=== PATIENT | male | born 1975 | race Caucasian/White ===

== ENCOUNTER 2018-10-30 13:47 | Inpatient (IN) | payer OTHER ==
[~2018-10-30] VITALS: Ht 167.6 cm; Wt 106.1 kg
[2018-10-30] MEDS ORDERED: IOVERSOL 350 MG/ML 100 ML VIAL ONE (14:25)
[2018-10-30] MEDS ORDERED: SODIUM CHLORIDE 0.9% 100 ML ONE (14:25)
[2018-10-30 14:32] LABS: BASOPHILS % (AUTO) 1.4 % (0.0-2.0); EOSINOPHILS % (AUTO) 4.8 % (1.0-6.0); HEMATOCRIT 43.6 % (41-53); HEMOGLOBIN 14.8 g/dL (13.5-17.5); LYMPHOCYTES # (AUTO) 2.2 K/uL (1.0-4.8); LYMPHOCYTES % (AUTO) 30.2 % (22.0-44.0); MEAN CORPUSCULAR HEMOGLOBIN 28.6 pg (26.0-34.0); MEAN CORPUSCULAR HGB CONC 33.8 G/dL (31.0-37.0); MEAN CORPUSCULAR VOLUME 84 fL (80-100); MONOCYTES # (AUTO) 0.6 K/uL (0.1-1.0); MONOCYTES % (AUTO) 7.5 % (2.0-9.0); NEUTROPHILS # (AUTO) 4.1 K/uL (1.8-7.7); NEUTROPHILS % (AUTO) 56.1 % (40.0-70.0); PLATELET COUNT (AUTO) 277 K/uL (150-450); RED BLOOD CELL COUNT(AUTO) 5.17 MIL/uL (4.50-5.90); RED CELL DISTRIBUTION WIDTH 13.4 % (11.5-14.5)
[2018-10-30 14:42] LABS: ANION GAP 9 mmol/L (8-16); CALCIUM, TOTAL 9.5 mg/dL (8.8-10.5); CARBON DIOXIDE 26 mmol/L (22-29); CHLORIDE 105 mmol/L (98-107); CREATININE 0.74 mg/dL (0.60-1.30); GLOMERULAR FILTR. RATE CALC > 60 mL/min (>60); GLUCOSE,RANDOM 268 mg/dL (70-110); POTASSIUM 3.8 mmol/L (3.5-5.1); SODIUM SERUM 140 mmol/L (136-145); UREA NITROGEN, BLOOD 8 mg/dL (7-18)
[2018-10-30] MEDS ORDERED: ONDANSETRON HCL 4 MG/2 ML VIAL IVP PRN (17:15)
[2018-10-30] MEDS ORDERED: ASPIRIN 81 MG CHEWABLE TABLET PO ONE (17:15)
[2018-10-30] MEDS ORDERED: ACETAMINOPHEN 325 MG TABLET PO PRN ×2 (17:15→17:45)
[2018-10-30 17:42] LABS: GLUCOSE,POINT OF CARE 291 MG/DL (70-110)
[2018-10-30] MEDS ORDERED: MAGNESIUM HYDROXIDE SUSPENSION 30 ML UDCUP PO PRN (17:45)
[2018-10-30] MEDS ORDERED: PNEUMOCOCCAL VACCINE POLYVALENT 0.5 ML VIAL [PPSV23] IM ONE (18:15)
[2018-10-30] MEDS: ATORVASTATIN CALCIUM 20 MG TABLET PO SCH (18:22)
[2018-10-30 18:40] VITALS: BP 144/95
[2018-10-30 20:30] VITALS: BP 155/79
[2018-10-30] MEDS: DOCUSATE SODIUM 100 MG CAPSULE PO SCH (20:41)
[2018-10-30] MEDS: HEPARIN SODIUM,PORCINE 5,000 UNITS/ML VIAL SQ SCH (23:47)
[2018-10-31] VITALS (7 sets, daily range): BP systolic 144–153; BP diastolic 77–97
[2018-10-31 01:44] LABS: AMPHET/METH SCREEN,URINE NEGATIVE (NEGATIVE); BARBITURATE SCREEN, URINE NEGATIVE (NEGATIVE); BENZODIAZEPINES SCREEN,URINE NEGATIVE (NEGATIVE); CANNABINOID SCREEN,URINE NEGATIVE (NEGATIVE); COCAINE SCREEN,URINE NEGATIVE (NEGATIVE); METHADONE SCREEN, URINE NEGATIVE (NEGATIVE); OPIATE SCREEN,URINE NEGATIVE (NEGATIVE)
[2018-10-31 01:45] LABS: PHENCYCLIDINE SCREEN,URINE NEGATIVE (NEGATIVE)
[2018-10-31] MEDS: DOCUSATE SODIUM 100 MG CAPSULE PO SCH ×2 (08:46→20:32)
[2018-10-31] MEDS: ATORVASTATIN CALCIUM 20 MG TABLET PO SCH (08:46)
[2018-10-31] MEDS: ASPIRIN 81 MG CHEWABLE TABLET PO SCH (08:46)
[2018-10-31] MEDS: HEPARIN SODIUM,PORCINE 5,000 UNITS/ML VIAL SQ SCH ×2 (08:47→16:47)
[2018-10-31] MEDS ORDERED: DEXTROSE 50%-WATER 25 GM/50 ML SYRINGE IVP PRN (10:00)
[2018-10-31] MEDS: INSULIN LISPRO 100 UNITS/ML SQ PRN ×3 (11:47→20:38)
[2018-10-31 11:50] LABS: GLUCOMETER DEV NAME(LOC) 5N.1; GLUCOSE,POINT OF CARE 258 MG/DL (70-110)
[2018-10-31 19:20] LABS: GLUCOMETER DEV NAME(LOC) 5N.1; GLUCOSE,POINT OF CARE 235 MG/DL (70-110)
[2018-11-01] MEDS: HEPARIN SODIUM,PORCINE 5,000 UNITS/ML VIAL SQ SCH ×2 (00:04→07:57)
[2018-11-01 00:05] VITALS: BP 137/76
[2018-11-01 00:25] LABS: GLUCOMETER DEV NAME(LOC) 5N.1; GLUCOSE,POINT OF CARE 197 MG/DL (70-110)
[2018-11-01 05:21] VITALS: BP 156/89
[2018-11-01 06:45] LABS: CHOL/HDL RATIO 5.9 (4.2-7.3)
[2018-11-01 06:48] LABS: HEMOGLOBIN A1C 8.9 % (4.5-6.2)
[2018-11-01] MEDS: INSULIN LISPRO 100 UNITS/ML SQ PRN ×2 (06:48→11:18)
[2018-11-01 07:46] VITALS: BP 146/98
[2018-11-01] MEDS: ATORVASTATIN CALCIUM 20 MG TABLET PO SCH (07:58)
[2018-11-01] MEDS: DOCUSATE SODIUM 100 MG CAPSULE PO SCH (07:58)
[2018-11-01] MEDS: ASPIRIN 81 MG CHEWABLE TABLET PO SCH (07:58)
[2018-11-01] MEDS ORDERED: AmLODIPine BESYLATE 5 MG TABLET PO SCH (09:45)
[2018-11-01] MEDS ORDERED: AMLO5TAB9 PO (10:49)
[2018-11-01] MEDS ORDERED: ASPI81 PO (10:50)
[2018-11-01] MEDS ORDERED: METF-960 PO (10:50)
[2018-11-01] MEDS ORDERED: ATOR20TA86 PO (10:50)
[2018-11-01 11:33] VITALS: BP 154/82
[2018-11-01 21:35] LABS: GLUCOMETER DEV NAME(LOC) 5N.2; GLUCOSE,POINT OF CARE 197 MG/DL (70-110)
[2018-11-02 11:36] LABS: GLUCOMETER DEV NAME(LOC) 5N.1; GLUCOSE,POINT OF CARE 194 MG/DL (70-110)
== END 2018-11-01 13:47 | disposition home or self-care (01) | DRG 66 ==
LOC: EMS 13:49 → 5S 17:39
PROVIDERS: ADMIT Internal Medicine; ATTEND Internal Medicine
DX: I63.9 Cerebral infarction, unspecified (principal); E66.01 Morbid (severe) obesity due to excess calories; I10 Essential (primary) hypertension; E11.9 Type 2 diabetes mellitus without complications; F17.210 Nicotine dependence, cigarettes, uncomplicated; Z68.37 Body mass index [BMI] 37.0-37.9, adult
CPT/HCPCS: 70450; 70496; 83036; 92610; 93005; 93306; 93880; 97110; 97116; 97162; 97166; 97530; 97535; G0378; J1644; J7050